=== PATIENT | female | born 1965 | race Caucasian/White ===

== ENCOUNTER 2016-08-23 10:40 | Emergency (ER) | payer OTHER ==
[~2016-08-23] VITALS: Ht 180.3 cm; Wt 97.7 kg
[~2016-08-23 10:40] MED LIST: DIAZ5TAB PO; IBUP800T28 PO; ONDA8TAB7 PO; OXYC-284 PO
[2016-08-23 10:51] VITALS: BP 133/83; PULSE 76; RESP 10; O2SAT 99
[2016-08-23 11:00] VITALS: BP 131/75; PULSE 74; RESP 16; O2SAT 97
--- NOTE | 2016-08-23 11:00 | ED.REPORT ---
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 The pain radiates down to her neck. She visited her dentist two weeks ago at which time x-rays were taken and were reportedly normal. She was referred to an motor equipment captain of which she had an appointment yesterday at which time no cause of her pain was discovered. She was prescribed a muscle relaxant but the medication has not improved her symptoms. She denies fever, dysphagia, dysphasia , SOB, sore throat, nasal congestion, nausea, vomiting, cough, rhinorrhea and chest pain. Her symptoms today are somewhat similar to a previous episode at which time she was diagnosed with a blood clot in the left IJ. At that time she had significant redness and swelling of the neck which is not apparent at this time. Nursing Notes Stated Complaint: JAW AND NECK PAIN,HISTORY OF BLOOD CLOTS Chief Complaint: General Complaint Nursing Notes Reviewed: Yes Allergies: Coded Allergies: Opioids - Morphine Analogues (Verified Adverse Reaction, Mild, NAUSEA AND VOMITING, 06/16/14) Uncoded Allergies: ADHESIVE TAPE (Adverse Reaction, Severe, RASH, 06/15/14) Scheduled Amoxicillin/Clav K 875-125 mg (Augmentin 875-125 mg) 1 Each Tablet 1 TABLET PO BID Diazepam (Valium) 5 Mg Tablet 1-2 TAB PO Q8 Scheduled PRN Ibuprofen (Ibuprofen) 800 Mg Tablet 800 MG PO TID PRN PRN For Pain Ondansetron ODT (Zofran ODT) 8 Mg Tab.rapdis 8 MG PO Q8 PRN PRN For Nausea Oxycodone HCl/Acetaminophen 5-325 (Percocet 5-325) 1 Each Tablet 1-2 EACH PO Q4 PRN PRN For Pain General Time Seen by MD: 10:59 Chief Complaint Other (right lower jaw pain) Hx Obtained From: Patient Arrived By: Walk-in Sudden in Onset?: No Onset Occurred: More than a week ago... (3 weeks) Symptom Duration: Since onset Location: : Face: Neck Quality: Throbbing Severity: Current: Mild Severity: Maximum: Mild Recent Healthcare: Recent doctor visit, Recent testing Past Medical History Past Medical History Left IJ blood clot - etiology unknown Past Surgical History Back surgery (2011) Smoking History Never Smoker Social History Alcohol Use: Denies alcohol use Drug Use: Denies drug use Ambulatory Status Independent Review of Systems + jaw pain Full Review of Systems Constitutional: Denies: Chills, Fever Ears / Nose / Throat: Denies: Nasal congestion, Sore throat Respiratory: Denies: Non-productive cough, Shortness of breath Cardiovascular: Denies: Chest pain GI: Denies: Dysphagia, Nausea, Vomiting Musculoskeletal: Reports: Neck pain Skin: Denies Rash, Denies Swelling Allergy / Immune: Denies: Allergic reaction, Rhinorrhea Complete sys rev & neg: except as marked. Physical Exam Vital Signs Vital Signs Date Time Temp Pulse Resp B/P Pulse Ox O2 Delivery O2 Flow Rate FiO2 08/23/16 11:00 38.7 74 16 131/75 97 08/23/16 10:51 36.8 76 10 133/83 99 Room Air Initial VS: Reviewed, Vital signs normal Head / Eyes: Atraumatic, Normocephalic, PERRL Respiratory: Breath sounds normal, Clear to auscultation, No respiratory distress Cardiovascular: Regular rate & rhythm, Heart sounds normal, Intact distal pulses Abdomen / GI: Soft, Non-tender, No distention Extremities: Vascular intact, Neuro intact, No swelling, No tenderness Skin: Warm, Dry, No cyanosis Psychiatric: Mood/affect normal, Behavior normal, Normal thought content General/Constitutional: Awake, Alert, No acute distress, Well appearing, Cooperative, Not toxic appearing ENT: Atraumatic, Airway patent, Mucous membranes moist Tender over right lower posterior molar No erythema, fluctuance, discharge Mild oropharyngeal erythema No exudates Neck: Atraumatic, Supple, No meningismus, Full range of motion, No midline vertebral tend Tenderness over right neck diffusely Neurologic: Oriented X3, Speech NL, No motor deficits, No sensory deficits, CN II - XII intact Interpretation & Diagnostics Interpretation & Diagnostics: US neck: no blood clot Prelim read by US tech - official pending Re-Eval/Medical Decision Med Decision/Clinical Course 50-year-old female with right lower tooth pain and neck pain 3 weeks. She has history of left-sided internal jugular clot years ago and reports these symptoms are similar. She is seen a dentist and was told everything was normal. She is tender over her right neck as well as her right lower molar. Ultrasound of right neck and right upper extremity shows no evidence of blood clot or abscess. She has no cardiac symptoms chest pain or shortness of breath. Suspect mild dental infection treated with Augmentin. Return precautions given. Recommend follow up with primary doctor and dentist. Time of Eval: 12:25 Re-Evaluation/Progress Note: Pt rechecked. Informed the pt of the plan for ??? Pt understands and agrees with plan for ??. F/U instructions and RTER warning given. All questions addressed. Counseled Regarding: Diagnosis, Need for follow-up, When/why to return to ED Discharge & Departure Primary Impression: Neck pain Additional Impression: Dental infection Disposition: Home Discharge Condition All VS Reviewed: Yes Condition: Stable Patient Instructions: Dental Abscess (ED) Additional Instructions: The ultrasound was normal today, there was no sign of blood clot. You may have a tooth infection causing pain radiating into your neck. Take the antibiotics as prescribed. Twice per day for 10 days. Take Tylenol as directed for pain. Return to the emergency department for fever, shaking chills, vomiting, drooling , difficulty swallowing, trouble breathing, neck swelling, severe pain, or for other concerning symptoms. Follow-up with your primary care doctor or dentist in 1 week for a recheck. Referrals: Willi Card MD (PCP) Scribe Attestation Portions of this note were transcribed by Master Olson and Bimal Allen. I, Dr. Hartley personally performed the history, physical exam and medical decision-making;I reviewed and confirmed the accuracy of the information in the transcribed note. Signed by Master Olson and Peter Alexandra. 08/23/16 [id number] copies to: Willi Card MD, Ben M MD Aug 23, 2016 11:00 Master Olson Aug 23, 2016 11:20 BIMAL ALLEN Aug 23, 2016 11:44
[2016-08-23] MEDS ORDERED: AMOX-366 PO (12:29)
--- NOTE | 2016-08-23 12:32 | DRSVH ---
PROCEDURE: US VENOUS ARM DUPLEX UNILATERAL, RIGHT INDICATIONS: R neck pain h/o blood clot in L IJ in past TECHNIQUE: Real-time imaging, as well as color and pulse Doppler interrogation, was performed of the right upper extremity deep veins from the inferior neck to the antecubital fossa. COMPARISON: None. FINDINGS: The internal jugular vein, visualized portions of the subclavian vein, axillary, and brach ial veins are free of intraluminal thrombus. Where physically possible, the veins are normally compr essible. Color and pulse Doppler demonstrate normal intraluminal flow, with expected phasicity and p ulsatility. Additional scanning of the cephalic and basilic veins of the superficial system demonstr ate normal compressibility, without thrombus. IMPRESSION: No DVT found over the right upper extremity. Dictated by: Medardo Hagen M.D. on 08/23/2016 at 12:30 Approved by: Medardo Hagen M.D. on 08/23/2016 at 12:31
== END 2016-08-23 12:43 | disposition home or self-care (01) ==
LOC: SED 10:40
DX: M54.2 Cervicalgia (principal); K04.7 Periapical abscess without sinus; Z88.8 Allergy status to other drugs, medicaments and biological substances